=== PATIENT | female | born 1985 | race Caucasian/White ===

== ENCOUNTER → 2020-03-11 | Outpatient (CLI) | payer OTHER ==
[~2020-03-11] MED LIST: ANTOXYBENA RIGHTEAR; Amoxicillin500 MG PO; Amoxicillin875 MG PO; FERR325 PO; HYDPAM50 PO; IBUP800 PO; LAVAP17G PO; NICO2 PO; ONDA4ODT MM; PRENATA CHEWAB1 EACH PO; Verotin-Gr Cap1 EACH PO
[2020-03-12 12:10] LABS: Candida species (DNA Probe) Negative (NEGATIVE); G. vaginalis (DNA Probe) Positive (NEGATIVE); T. vaginalis (DNA Probe) Negative (NEGATIVE)
[2020-03-12 14:09] LABS: HPV 16 Negative (Negative); HPV 18 Negative (Negative); HPV OTHER HR TYPES Positive (Negative)
== END ==
LOC: LAB SHORT 12:50 → LAB 12:50
PROVIDERS: Nurse Practitioner Family
DX: Z00.00 Encounter for general adult medical examination without abnormal findings (principal)
CPT/HCPCS: 87480; 87510; 87624; 87625; 87660; G0123

== ENCOUNTER → 2020-06-23 | Outpatient (CLI) | payer OTHER | END | disposition home or self-care (01) | LOC: LAB EV 16:53 → LAB SHORT 16:53 | DX: N39.0 Urinary tract infection, site not specified (principal) | CPT/HCPCS: 87086 ==

== ENCOUNTER 2021-02-21 21:22 | Inpatient (IN) | payer OTHER ==
[~2021-02-21] VITALS: Ht 172.7 cm; Wt 87.7 kg
[2021-02-21 22:02] LABS: U Amphetamine Screen Not Detected; U Barbituate Screen Not Detected; U Benzodiazapine Screen Not Detected; U Buprenorphine Screen Not Detected; U Cannabinoids Screen Not Detected; U Cocaine Screen Not Detected; U Methadone Screen DETECTED; U Methamphetamine Screen Not Detected; U Opiates Screen Not Detected; U Oxycodone Screen Not Detected; U Phencyclidine Screen Not Detected; U Propoxyphene Screen Not Detected
[2021-02-21] MEDS ORDERED: METH10 PO (22:04)
[2021-02-21 22:18] LABS: BASOPHILS ABSOLUTE AUTO 0.04 K/mm3 (0.00-0.23); BASOPHILS PERCENT AUTO 0 % (0-2); EOSINOPHILS ABSOLUTE AUTO 0.03 K/mm3 (0.00-0.68); EOSINOPHILS PERCENT AUTO 0 % (0-6); Hematocrit 34.6 % (33.0-51.0); Hemoglobin 11.7 g/dL (11.5-16.0); IMMATURE GRAN ABSOLUTE AUTO 0.05 K/mm3 (0.00-0.10); IMMATURE GRAN PERCENT AUTO 0 % (0-1); LYMPHOCYTES ABSOLUTE AUTO 2.22 K/mm3 (0.84-5.20); LYMPHOCYTES PERCENT AUTO 19 % (21-46); MONOCYTES ABSOLUTE AUTO 1.11 K/mm3 (0.16-1.47); MONOCYTES PERCENT AUTO 10 % (4-13); Mean Corpuscular HGB 31.6 pg (26.0-34.0); Mean Corpuscular HGB Conc 33.8 g/dL (31.5-36.5); Mean Corpuscular Volume 94 fL (80-100); NEUTROPHILS ABSOLUTE AUTO 8.12 K/mm3 (1.96-9.15); NEUTROPHILS PERCENT AUTO 70 % (41-73); Platelet Count 171 K/mm3 (150-400); RDW Coefficient Variation 12.2 % (11.7-14.2); RDW Standard Deviation 41.8 fL (35.1-46.3); White Blood Cell Count 11.57 K/mm3 (4.00-11.30)
[2021-02-21 22:41] LABS: SARS-Cov-2 (COVID-19) PCR, MMC NEGATIVE (NEGATIVE)
--- NOTE | 2021-02-22 12:43 | NUR ---
PT DENIES PAIN AT THIS TIME. PT WILL CALL WHEN SHE IS READY TO GET UP TO [facility] AND TO NURSERY TO SEE NB. PT ANATOLIY LUNCH WELL. NO COMPLAINTS
--- NOTE | 2021-02-22 13:21 | NUR ---
OOB TO SHOWER AND [facility]. ANATOLIY WELL. DENIES PAIN. NO COMPLAINTS
--- NOTE | 2021-02-22 14:40 | NUR ---
1430: PT AMBULATING IN THE [facility] TO THE NURSERY TO SEE SHAI. ANATOLIY WELL. DECLINES W/C. DENIES PAIN.
--- NOTE | 2021-02-22 19:52 | NUR ---
PT IN NURSERY WITH NB AT THIS TIME.
[2021-02-23 06:55] LABS: Hematocrit 30.9 % (33.0-51.0); Hemoglobin 10.3 g/dL (11.5-16.0); Mean Corpuscular HGB 31.8 pg (26.0-34.0); Mean Corpuscular HGB Conc 33.3 g/dL (31.5-36.5); Mean Corpuscular Volume 95 fL (80-100); Mean Platelet Volume 11.4 fL (9.1-12.4); Platelet Count 171 K/mm3 (150-400); RDW Coefficient Variation 12.7 % (11.7-14.2); RDW Standard Deviation 43.7 fL (35.1-46.3); Red Blood Cell Count 3.24 M/mm3 (3.80-5.20); White Blood Cell Count 11.08 K/mm3 (4.00-11.30)
--- NOTE | 2021-02-23 09:30 | NUR ---
DISCHARGE TEACHING DONE And patient TO [facility]ARD[facility] WITH RPEMA SANCHEZ FINISHING DISCHARGE PROCEDURES WITH PATIENT IN NURSERY
== END 2021-02-23 10:00 | disposition home or self-care (01) | DRG 806 ==
LOC: OBS 21:22 → BC 21:37
PROVIDERS: ADMIT Advanced Practice Midwife
PROC: 10E0XZZ Delivery of Products of Conception, External Approach (ICD-10-PCS; principal; 2021-02-22)
PROC: 10907ZC Drainage of Amniotic Fluid, Therapeutic from Products of Conception, Via Natural or Artificial Opening (ICD-10-PCS; 2021-02-22)
PROC: 3E033VJ Introduction of Other Hormone into Peripheral Vein, Percutaneous Approach (ICD-10-PCS; 2021-02-22)
PROC: 3E0DXGC Introduction of Other Therapeutic Substance into Mouth and Pharynx, External Approach (ICD-10-PCS; 2021-02-22)
DX: O48.0 Post-term pregnancy (principal); O99.324 Drug use complicating childbirth; Z37.0 Single live birth; Z3A.40 40 weeks gestation of pregnancy; O43.123 Velamentous insertion of umbilical cord, third trimester; F11.90 Opioid use, unspecified, uncomplicated
CPT/HCPCS: 36415; 51702; 85025; 85027; 85460; 86850; 86870; 86900; 86901; A9270; J2001; J2405; J2590; J2791; J3010; J7120; U0004

== ENCOUNTER 2021-10-25 13:24 | Emergency (ER) | payer OTHER ==
[~2021-10-25] VITALS: Ht 172.7 cm; Wt 90.7 kg
[~2021-10-25 13:24] MED LIST changes: +METH10 PO
[2021-10-25] MEDS ORDERED: ALPR1 PO (14:59)
== END 2021-10-25 15:03 | disposition home or self-care (01) ==
LOC: ER 13:24
DX: Z76.0 Encounter for issue of repeat prescription (principal); F41.9 Anxiety disorder, unspecified; Z88.8 Allergy status to other drugs, medicaments and biological substances; Z79.899 Other long term (current) drug therapy
CPT/HCPCS: A9270